=== PATIENT | male | born 1995 | race Caucasian/White ===

== ENCOUNTER 2016-11-26 23:19 | Emergency (ER) | payer OTHER ==
[2016-11-26] MEDS ORDERED: MIDAZOLAM INJ 5 MG/ML VIAL (J2250) As Ordered ONE (23:37)
[2016-11-26] MEDS ORDERED: MIDAZOLAM HCL 50 MG in D5W 40 ML IV SCH (23:45)
[2016-11-26] MEDS ORDERED: MIDAZOLAM HCL 100 MG in D5W 80 ML IV SCH (23:45)
[2016-11-27] MEDS ORDERED: MIDAZOLAM HCL 50 MG in D5W 40 ML IV SCH ×2
[2016-11-27 00:03] LABS: ANION GAP 10 MEQ/L (8-16); BLOOD UREA NITROGEN 13 MG/DL (7-18); CARBON DIOXIDE LEVEL 26 MEQ/L (21-32); CHLORIDE LEVEL 108 MEQ/L (98-107); CREATININE FOR GFR 1.44 MG/DL (0.70-1.30); GLOMERULAR FILTRATION RATE > 60.0 (>60); GLUCOSE, FASTING 78 MG/DL (70-105); POTASSIUM SERUM 4.3 MEQ/L (3.5-5.1); SODIUM LEVEL 144 MEQ/L (136-145)
[2016-11-27 00:06] LABS: ADD MANUAL DIFFER YES; MEAN CORPUSCULAR HEMOGLOBIN 30.7 pg (27.0-33.0); MEAN CORPUSCULAR HGB CONC 33.9 g/dl (32.0-36.5); MEAN CORPUSCULAR VOLUME 90.5 fl (80.0-96.0); PLATELET COUNT, AUTOMATED 216 k/mm3 (150-450); RED CELL DISTRIBUTION WIDTH 12.8 % (11.5-14.5); WHITE BLOOD COUNT 15.3 K/mm3 (4.0-10.0)
[2016-11-27] MEDS ORDERED: LIDOCAINE 1% MDV 20ML VIAL As Ordered ONE (00:37)
--- NOTE | 2016-11-27 00:40 | REPUSA ---
CLINICAL HISTORY: Head trauma. TECHNIQUE: Multiple axial brain CT scan sections were obtained from base to vertex without contrast a dministration. COMMENTS: Anterior facial soft tissue edema. Acute displaced fractures of the nasal bones. The study shows normal configuration of sella turcica. There are no intra or extra-axial collections. There is no mass effect or midline shift. There is no evidence of hematoma formation. No hydrocephal us is present. No abnormal calcifications are noted. No significant abnormalities are seen either in the posterior fossa or supratentorial compartment. The sinuses and mastoid air cells are patent. IMPRESSION: Acute displaced fractures of the nasal bones. Anterior facial soft tissue edema. No evidence of acute intracranial pathology. No intracranial hemorrhage. Thank you for your kind referral of this patient.
[2016-11-27 00:41] LABS: BANDS 5 % (< 11)
[2016-11-27 00:44] LABS: ABG HCO3 20.4 MEQ/L (22.0-26.0); ABG PARTIAL PRESSURE CO2 39.3 mmHg (35.0-45.0); ABG STANDARD HCO3 20.4 MEQ/L (22.0-26.0); ABG TOTAL CO2 21.6 MEQ/L (22.0-29.0); ABG pH (ARTERIAL) 7.333 UNITS (7.350-7.450)
[2016-11-27] MEDS ORDERED: LIDOCAINE 1% SDV 5 ML VIAL SC ONE (00:45)
--- NOTE | 2016-11-27 00:50 | REPUSA ---
HISTORY: Trauma. COMPARISON: Not provided. TECHNIQUE: Multiple thin section helically-acquired axially-displayed and helically acquired coronall y displayed computed tomographic images of the face are obtained from the mandible through the fronta l sinuses, with images obtained at soft tissue and bone window. 2D reformatted images were performed. FINDINGS: Acute displaced fractures of the nasal bones. Acute displaced fracture of the nasal spine of the maxillary bone. Soft tissue edema and swelling. Normal orbits. Normal, clear paranasal sinuses. Normal oral and nasal cavities. Normal infratemporal fossa and deep parapharyngeal spaces with normal muscles of mastication. Normal parotid and submandibular glands. IMPRESSION: Acute displaced fractures of the facial bones with soft tissue edema as described above. Thank you for your kind referral of this patient
--- NOTE | 2016-11-27 00:50 | REPUSA ---
CLINICAL HISTORY: Neck pain. TECHNIQUE: Multiple axial images were obtained through the cervical spine. Images were also reconstru cted in coronal and sagittal planes. The study was performed without IV contrast. COMMENTS: There is no fracture or spondylolisthesis visualized. The paraspinal soft tissues are unremarkable. T here are no lytic or blastic lesions. Straightening of cervical lordosis is seen, suggesting muscular spasm. There is evidence of minimal m ultilevel disk disease, demonstrated by minimal osteophytosis and endplate sclerosis. No significant disk herniation is noted at any level. Canal and foramina remain patent. IMPRESSION: 1. No fracture or spondylolisthesis. 2. Straightening of cervical lordosis is seen, suggesting muscular spasm. 3. Minimal multilevel spondylosis. Thank you for your kind referral of this patient.
[2016-11-27 00:53] LABS: INR 1.07
[2016-11-27] MEDS ORDERED: DERMABOND TOPICAL SKIN ADHESIVE TOP ONE (01:00)
[2016-11-27] MEDS ORDERED: MIDAZOLAM INJ 2 MG/2 ML VIAL (J2250) IV ONE (01:15)
[2016-11-27] MEDS ORDERED: ETOMIDATE INJ 20MG/10ML VIAL IV ONE (01:15)
[2016-11-27] MEDS ORDERED: SUCCINYLCHOLINE INJ 200 MG/10 ML VIAL (J0330) IV ONE (01:15)
[2016-11-27] MEDS ORDERED: NS 1,000 ML IV ONE (01:30)
[2016-11-27 03:00] VITALS: BP 113/56
[2016-11-27] MEDS ORDERED: REFRIGERATOR IV KEYS XX PRN (03:15)
[2016-11-27] MEDS ORDERED: MIDAZOLAM HCL 100 MG in D5W 80 ML IV SCH (03:30)
--- NOTE | 2016-11-27 07:27 | REP ---
Clinical: Endotracheal tube placement. Comparison: None. Findings: Endotracheal tube in satisfactory position approximately 3.1 cm above the kristian. Lung volumes are symmetric and without obvious consolidation, effusion, or pneumothorax. Mediastinum and cardiac silhouette are within normal limits. Skeletal structures are intact. Impression: Endotracheal tube in satisfactory position. No obvious acute cardiopulmonary process. Signed by Huang Hull MD 11/27/2016 07:19 A
[2017-01-23] MEDS ORDERED: MELA3TAB49 PO (11:14)
== END 2016-11-27 03:26 | disposition short-term general hospital (02) ==
LOC: M ED 23:24
DX: S09.90XA Unspecified injury of head, initial encounter (principal); S02.2XXA Fracture of nasal bones, initial encounter for closed fracture; S01.511A Laceration without foreign body of lip, initial encounter; S03.2XXA Dislocation of tooth, initial encounter; Y04.0XXA Assault by unarmed brawl or fight, initial encounter; Y92.019 Unspecified place in single-family (private) house as the place of occurrence of the external cause; Y93.89 Activity, other specified; Y99.8 Other external cause status
CPT/HCPCS: 12011; 36600; 51702; 70450; 70486; 71010; 72125; 80048; 82550; 82803; 85025; 85610; 85730; 96374; 96375; 96376; 99291; G0480; J0330; J2250

== ENCOUNTER 2018-09-28 23:10 | Inpatient (IN) | payer OTHER ==
[~2018-09-28] VITALS: Ht 170.2 cm; Wt 61.4 kg
[~2018-09-28 23:10] MED LIST: MELA3TAB49 PO
[2018-09-29 00:36] LABS: HEMATOCRIT 46.2 % (42.0-52.0); HEMOGLOBIN 15.8 g/dl (13.5-17.5); MEAN CORPUSCULAR HEMOGLOBIN 30.4 pg (27.0-33.0); MEAN CORPUSCULAR HGB CONC 34.2 g/dl (32.0-36.5); PLATELET COUNT, AUTOMATED 255 10^3/uL (150-450); RED BLOOD COUNT 5.19 10^6/uL (4.30-6.10); WHITE BLOOD COUNT 7.3 10^3/uL (4.0-10.0)
[2018-09-29 01:04] LABS: AMPHETAMINES LEVEL URINE NEGATIVE (NEGATIVE); BARBITURATES URINE NEGATIVE (NEGATIVE); BENZODIAZEPINES URINE NEGATIVE (NEGATIVE); CANNABINOIDS URINE NEGATIVE (NEGATIVE); COCAINE METABOLITE URINE NEGATIVE (NEGATIVE); METHADONE URINE NEGATIVE (NEGATIVE); OPIATES URINE NEGATIVE (NEGATIVE); PHENCYCLIDINE URINE NEGATIVE (NEGATIVE)
[2018-09-29 01:07] LABS: ACETAMINOPHEN LEVEL < 2.0 UG/ML (10.0-30.0); ALBUMIN 4.8 GM/DL (3.2-5.2); ALT/SGPT 26 U/L (12-78); BILIRUBIN,DIRECT 0.1 MG/DL (0.0-0.2); BILIRUBIN,TOTAL 0.2 MG/DL (0.2-1.0); BLOOD UREA NITROGEN 10 MG/DL (7-18); CALCIUM LEVEL 8.5 MG/DL (8.5-10.1); CARBON DIOXIDE LEVEL 30 MEQ/L (21-32); CHLORIDE LEVEL 101 MEQ/L (98-107); CREATININE FOR GFR 1.29 MG/DL (0.70-1.30); ETHYL ALCOHOL (ETHANOL) 0.154 % (0.000-0.010); GLOMERULAR FILTRATION RATE > 60.0 (>60); GLUCOSE, FASTING 106 MG/DL (70-100); POTASSIUM SERUM 3.7 MEQ/L (3.5-5.1); SALICYLATE LEVEL < 1.7 MG/DL (5.0-30.0); SODIUM LEVEL 141 MEQ/L (136-145); TOTAL PROTEIN 8.6 GM/DL (6.4-8.2)
[2018-09-29] MEDS ORDERED: ACETAMINOPHEN TAB 650MG DOSE (2X325MG) PO PRN (03:15)
[2018-09-29] MEDS ORDERED: NICOTINE 21MG/24HR 1 EA TRANSDERMAL TD PRN (03:15)
[2018-09-29] MEDS ORDERED: MAALOX 30 ML SUSP *UDC PO PRN (03:15)
[2018-09-29] MEDS ORDERED: MOM 30ML SUSPENSION UDC PO PRN (03:15)
[2018-09-29 04:48] VITALS: BP 135/82
[2018-09-29] MEDS: NICOTINE POLACRILEX 2 MG GUM PO PRN ×3 (09:45→20:54)
[2018-09-29 10:14] LABS: HEMOGLOBIN A1c 5.9 %
[2018-09-29 10:25] LABS: CHOLESTEROL RISK RATIO 2.419 (<5); FREE THYROXINE INDEX 3.2 % (1.4-3.8); THYROID STIMULATING HORMONE 3.38 uIU/ML (0.358-3.740)
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
[2018-09-29] MEDS ORDERED: SERTRALINE HCL 25 MG TABLET PO ONE (10:45)
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
[2018-09-29 18:00] VITALS: BP 122/82
[2018-09-29] MEDS: traZODone 50 MG TAB PO PRN (20:54)
[2018-09-29] MEDS: hydrOXYzine 10 MG TAB PO PRN (20:54)
[2018-09-30 06:55] VITALS: BP 125/71
[2018-09-30] MEDS ORDERED: SERTRALINE HCL 25 MG TABLET PO SCH (09:00)
[2018-09-30] MEDS: NICOTINE POLACRILEX 2 MG GUM PO PRN ×4 (09:13→22:13)
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
[2018-09-30] MEDS: hydrOXYzine 10 MG TAB PO PRN (15:41)
[2018-09-30 18:22] VITALS: BP 130/84
--- NOTE | 2018-09-30 19:27 | MHIPNPDOC ---
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 Patient reported symptoms consistent for quite some time, but no recent treatment prior to his admission. Interval History The patient met with today where he describes that he is feeling only very mildly better on the sertraline at this time. The patient describes that the talk therapy and the therapeutic milieu have been quite helpful for abating his suicidal ideation to the point where he no longer endorses it as he felt he has had some time to explore the situations that had brought him to it. Explore the patient's history as well as his hopes for the future and potential goals. The patient has done well on the unit attending only several groups as he notes that he feels somewhat awkward around other patients who are sicker than him. He has had no behavioral units on the ER and has been very cooperative. Review Of Systems Depression: The patient endorses continued fatigue, loss of interest, insomnia and low mood with no suicidal ideation at this time Anxiety: The patient endorses no significant nonsituational anxiety at this time Liza: The patient has no signs of liza on the unit Psychotic: The patient has no signs or symptoms of psychosis on the unit. Medical Cardiovascular: Denies chest pain or palpitations GI: Denies Nausea, vomiting, or bowel changes Respiratory: Denies shortness of breath or cough Neuro: Denies dizziness, tremors Derm: Denies any rashes or pruritus Heme/Lymph: denies any bruising or bleeding Vital Signs Reviewed. Mental Status Examination General: Well dressed with good hygiene Speech: Spontaneous and fluid Thought processes: Linear and logical MSK: Smooth and coordinated gait, no signs of tremors or involuntary orofacial movements Thought content: Future orientated Abstract reasoning, and computation: Intact Description of associations: Intact Description of abnormal or psychotic thoughts: Denies any suicidal or homicidal ideation. Denies any auditory or visual hallucinations. Does not appear to be responding to internal stimuli. Does not appear to be endorsing any bizarre or paranoid ideation. Judgment: Improving Insight: Improving Orientation: Alert and orientated 3 Cognition: Grossly normal Recent and remote memory: Intact Attention span and concentration: Intact Fund of knowledge: Adequate Mood: "okay" Affect: Dysthymic with a constricted range Diagnoses Major depressive disorder, severe, recurrent without psychotic symptoms: unstable Tobacco use disorder, moderate, : stable in controlled setting. Suicidal thoughts: improving Assessment and Plan The patient a 24 year old man with a history of depression presents with suicidal thoughts and a plan to shoot himself. Will discontinue sertraline at this time as it appears ineffective. Will start Wellbutrin 150 mg daily. Discussed the risks, benefits and potential side effects of Wellbutrin including common known side effects and explore the alternative options to current treatment. Disposition The patient will need further inpatient admission to address his severe d epression symptoms in order to secure a safe discharge. Time Spent 40 minutes of face to face time with greater than 50% counseling/coordination of care. Vital Signs Vital Signs Date Time Temp Pulse Resp B/P (MAP) Pulse Ox O2 Delivery O2 Flow Rate FiO2 09/30/18 18:22 98.4 70 16 130/84 (99) 09/29/18 04:48 97 09/29/18 03:44 Room Air Current Medications Current Medications Acetaminophen (Tylenol Tab) 650 mg Q6HP PRN PO HEADACHE or DISCOMFORT; Start 09/29/18 at 03:15 Al Hydrox/Mg Hydrox/Simethicone (Mylanta) 30 ml Q4HP PRN PO HEARTBURN/INDIGESTION; Start 09/29/18 at 03:15 Bupropion HCl (Wellbutrin Xl) 150 mg DAILY PO ; Start 10/01/18 at 09:00 Home Med (Med Rec Complete!) ASDIRECTED XX ; Start 09/29/18 at 04:00; Stop 09/29/18 at 04:00; Status DC Hydroxyzine HCl (Atarax) 10 mg Q6HP PRN PO ANXIETY/AGITATION Last administered on 09/30/18at 15:41; Start 09/29/18 at 10:45 Magnesium Hydroxide (Milk Of Magnesia) 30 ml DAILYPRN PRN PO CONSTIPATION; Start 09/29/18 at 03:15 Nicotine (Nicoderm Cq 21mg) 1 patch DAILY PRN TD CRAVING; Start 09/29/18 at 03:15; Stop 09/29/18 at 09:32; Status DC Nicotine (Nicorette) 2 mg Q2HP PRN PO NICOTINE WITHDRAWAL Last administered on 09/30/18at 15:41; Start 09/29/18 at 09:30 Sertraline HCl (Zoloft) 25 mg DAILY PO Last administered on 09/30/18at 09:13; Start 09/30/18 at 09:00; Stop 09/30/18 at 16:19; Status DC Trazodone HCl (Desyrel) 50 mg QHSP PRN PO INSOMNIA Last administered on 09/29/18at 20:54; Start 09/29/18 at 03:15 Allergies Coded Allergies: No Known Allergies (Unverified , 01/23/17) ALOK COTA DO Sep 30, 2018 19:27
[2018-09-30] MEDS: traZODone 50 MG TAB PO PRN (22:13)
[2018-10-01 06:36] VITALS: BP 102/55
[2018-10-01] MEDS: NICOTINE POLACRILEX 2 MG GUM PO PRN ×4 (08:30→17:07)
[2018-10-01] MEDS ORDERED: buPROPion **XL** TABLET 150MG (WELLBUTRIN XL) PO SCH (09:00)
[2018-10-01 18:00] VITALS: BP 122/78
[2018-10-02 06:00] VITALS: BP 112/64
--- NOTE | 2018-10-02 08:00 | MHDSPDOC ---
[facility] Discharge Summary Discharge Summary DATE OF ADMISSION: Sep 29, 2018 at 03:05 DATE OF DISCHARGE:10/02/18 Diagnoses MDD, moderate, in full remission, recurrent. 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 Patient reported symptoms consistent for quite sometime, but no recent treatment prior to his admission. Consultants Involved None. Treatment and Progress On The Unit Patient was admitted to the in-patient unit with fairly intense depressive symptoms. He had great insight still preserved suggesting he was still in the moderate zone for major depression. He was initially started on sertraline 25 mg that appeared ineffective. However, after switching to Wellbutrin and engaging in more intensive psychotherapy, his condition improved quite quickly. He was titrated up to 300 mg of Wellbutrin, that was even more effective for his sy mptoms and subsequently improved his triage for discharge. Patient reported that he was feeling much improved and that his symptoms had gone into remission. He demonstrated no safety issues for at least 24 hours prior to discharge. 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 His repeated episodes likely put him on a recurrent episode of #3 or 4. Discussed in-depth the risks, benefits of treatment of depression as well as future treatment. He appeared very amenable and insightful during the entirety of his stay. Mental Status Examination General: Well dressed with good hygiene Speech: Spontaneous and fluid Thought processes: Linear and logical MSK: Smooth and coordinated gait, no signs of tremors or involuntary orofacial movements Thought content: Future orientated Abstract reasoning, and computation: Intact Description of associations: Intact Description of abnormal or psychotic thoughts: Denies any suicidal or homicidal ideation. Denies any auditory or visual hallucinations. Does not appear to be responding to internal stimuli. Does not appear to be endorsing any bizarre or paranoid ideation. Judgment: fair Insight: fair Orientation: Alert and orientated 3 Cognition: Grossly normal Recent and remote memory: Intact Attention span and concentration: Intact Fund of knowledge: Adequate Mood: "okay" Affect: Euthymic with a full range Follow Up The social work team worked during the pre-discharge meeting in order to evaluate for further issues of lethality address them fully before discharge. They worked on safety planning with the patient's family members in order to ensure that the patient will have a safe and effective discharge. The amount of time spent in the coordination of care for this patient was approximately 30 minutes. Patient was discharged on 300 mg of Wellbutrin extended release daily. In- command meeting successfully completed in order to facilitate effective return to outpatient behavioral health. No safety issues elucidated prior to discharge. Patient in full agreement for safety planning. Vital Signs/I&Os Vital Signs Date Time Temp Pulse Resp B/P (MAP) Pulse Ox O2 Delivery O2 Flow Rate FiO2 10/02/18 06:00 97.8 56 12 112/64 (80) 09/29/18 04:48 97 09/29/18 03:44 Room Air Medications Scheduled Bupropion HCl (Wellbutrin Xl) 150 Mg Tab.er.24h, 300 MG PO DAILY for mood for 7 Days, #14 Allergies Coded Allergies: No Known Allergies (Unverified , 01/23/17) ALOK COTA DO Oct 02, 2018 08:00
[2018-10-02] MEDS: NICOTINE POLACRILEX 2 MG GUM PO PRN (08:20)
[2018-10-02] MEDS ORDERED: buPROPion **XL** TABLET 150MG (WELLBUTRIN XL) PO SCH (09:00)
--- NOTE | 2018-10-02 09:44 | MHIPNPDOC ---
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 Patient reported symptoms consistent for quite some time, but no recent treatment prior to his admission. Interval History The patient is met with today. He describes the Wellbutrin as fairly helpful for soothing his depression and that he's become much more active and engaged with others. He was found playing cards with others in the break room, attending groups regularly, exhibiting much social and interactive affect. He feels confident about returning home soon. He reports no side effects with the Wellbutrin. Review Of Systems Patient denies any palpitations, chest pain, agitation, anxiety, tremors or o ther side effects related to the Wellbutrin. Psychotherapy Psychoeducation related to depression as well as depression treatment focusing on patient's strengths, 16 minutes of psychotherapy completed in a supportive manner with beneficial result. Vital Signs Reviewed. Mental Status Examination General: Well dressed with good hygiene Speech: Spontaneous and fluid Thought processes: Linear and logical MSK: Smooth and coordinated gait, no signs of tremors or involuntary orofacial movements Thought content: Future orientated Abstract reasoning, and computation: Intact Description of associations: Intact Description of abnormal or psychotic thoughts: Denies any suicidal or homicidal ideation. Denies any auditory or visual hallucinations. Does not appear to be responding to internal stimuli. Does not appear to be endorsing any bizarre or paranoid ideation. Judgment: fair Insight: fair Orientation: Alert and orientated 3 Cognition: Grossly normal Recent and remote memory: Intact Attention span and concentration: Intact Fund of knowledge: Adequate Mood: "okay" Affect: Euthymic with a full range Diagnoses Major depressive disorder, severe, recurrent without psychotic symptoms: Improving. Tobacco use disorder, moderate, stable in controlled setting. Assessment and Plan The patient a 24 year old man with a history of depression presents with suicidal thoughts and a plan to shoot himself. Will discontinue sertraline at this time as it appears ineffective. We'll increase Wellbutrin to 300 mg daily. The patient will likely be discharged tomorrow pending improvement of his condition as his suicidal ideation has resolved and his depression has been fairly well treated. Chain of command meeting will commence tomorrow. Disposition The patient will need a further inpatient admission stay overnight in order to ensure a smooth transition with chain of command meeting and disposition planning at this time. Time Spent 30 minutes total [id number] time, 16 minutes psychotherapy time. Vital Signs Vital Signs Date Time Temp Pulse Resp B/P (MAP) Pulse Ox O2 Delivery O2 Flow Rate FiO2 10/02/18 06:00 97.8 56 12 112/64 (80) 09/29/18 04:48 97 09/29/18 03:44 Room Air Current Medications Current Medications Acetaminophen (Tylenol Tab) 650 mg Q6HP PRN PO HEADACHE or DISCOMFORT; Start 09/29/18 at 03:15 Al Hydrox/Mg Hydrox/Simethicone (Mylanta) 30 ml Q4HP PRN PO HEARTBURN/INDIGESTION; Start 09/29/18 at 03:15 Bupropion HCl (Wellbutrin Xl) 150 mg DAILY PO Last administered on 10/01/18at 08:30; Start 10/01/18 at 09:00; Stop 10/01/18 at 12:27; Status DC Bupropion HCl (Wellbutrin Xl) 300 mg DAILY PO Last administered on 10/02/18at 08:19; Start 10/02/18 at 09:00 Home Med (Med Rec Complete!) ASDIRECTED XX ; Start 09/29/18 at 04:00; Stop 09/29/18 at 04:00; Status DC Hydroxyzine HCl (Atarax) 10 mg Q6HP PRN PO ANXIETY/AGITATION Last administered on 09/30/18at 15:41; Start 09/29/18 at 10:45 Magnesium Hydroxide (Milk Of Magnesia) 30 ml DAILYPRN PRN PO CONSTIPATION; Start 09/29/18 at 03:15 Nicotine (Nicoderm Cq 21mg) 1 patch DAILY PRN TD CRAVING; Start 09/29/18 at 03:15; Stop 09/29/18 at 09:32; Status DC Nicotine (Nicorette) 2 mg Q2HP PRN PO NICOTINE WITHDRAWAL Last administered on 10/02/18at 08:20; Start 09/29/18 at 09:30 Sertraline HCl (Zoloft) 25 mg DAILY PO Last administered on 09/30/18at 09:13; Start 09/30/18 at 09:00; Stop 09/30/18 at 16:19; Status DC Trazodone HCl (Desyrel) 50 mg QHSP PRN PO INSOMNIA Last administered on 09/30/18at 22:13; Start 09/29/18 at 03:15 Allergies Coded Allergies: No Known Allergies (Unverified , 01/23/17) ALOK COTA DO Oct 02, 2018 09:44
[2018-10-02] MEDS ORDERED: BUPR150T3 PO (10:09)
[2018-10-02] MEDS ORDERED: WELLTAB38 PO (11:16)
== END 2018-10-02 10:45 | disposition home or self-care (01) | DRG 885 ==
LOC: M ED 23:10 → M ED INP 09-29 03:05 → M PSY 09-29 03:53
PROVIDERS: ADMIT Psychiatry & Neurology Psychiatry; ATTEND Psychiatry & Neurology Addiction Medicine
DX: F33.1 Major depressive disorder, recurrent, moderate (principal); F10.14 Alcohol abuse with alcohol-induced mood disorder; F17.210 Nicotine dependence, cigarettes, uncomplicated; Z81.3 Family history of other psychoactive substance abuse and dependence; Z81.8 Family history of other mental and behavioral disorders

== ENCOUNTER 2021-03-18 02:23 | Emergency (ER) | payer OTHER ==
[~2021-03-18] VITALS: Ht 167.6 cm; Wt 60.0 kg
[~2021-03-18 02:23] MED LIST changes: +BUPR150T12 PO; +WELLTAB38 PO
[2021-03-18] MEDS ORDERED: NS 1,000 ML IV ONE (06:30)
[2021-03-18 07:07] LABS: BASO % 0.3 % (0.0-1.0); EOS % 0.3 % (0.0-3.0); HEMATOCRIT 38.2 % (42.0-52.0); HEMOGLOBIN 13.2 g/dl (13.5-17.5); LYMPH # 1.6 10^3/uL (1.5-5.0); LYMPH % 17.1 % (24.0-44.0); MEAN CORPUSCULAR HEMOGLOBIN 31.3 pg (27.0-33.0); MEAN CORPUSCULAR HGB CONC 34.6 g/dl (32.0-36.5); MEAN CORPUSCULAR VOLUME 90.5 fl (80.0-96.0); MONO # 0.9 10^3/uL (0.0-0.8); MONO % 9.5 % (2.0-8.0); NEUTROPHILS # 6.7 10^3/uL (1.5-8.5); NEUTROPHILS % 72.4 % (36.0-66.0); PLATELET COUNT, AUTOMATED 212 10^3/uL (150-450); RED BLOOD COUNT 4.22 10^6/uL (4.30-6.10); WHITE BLOOD COUNT 9.2 10^3/uL (4.0-10.0)
[2021-03-18 07:33] LABS: BLOOD UREA NITROGEN 11 MG/DL (7-18); CALCIUM LEVEL 9.3 MG/DL (8.5-10.1); CARBON DIOXIDE LEVEL 26 MEQ/L (21-32); CHLORIDE LEVEL 105 MEQ/L (98-107); CREATININE FOR GFR 1.13 MG/DL (0.70-1.30); GLOMERULAR FILTRATION RATE > 60.0 (>60); GLUCOSE, FASTING 97 MG/DL (70-100); SODIUM LEVEL 142 MEQ/L (136-145)
[2021-03-18 07:51] LABS: RSV AMPLIFICATION NEGATIVE (NEGATIVE)
[2021-03-18 08:00] VITALS: BP 105/60
[2021-03-18] MEDS ORDERED: MORPHINE 2 MG/ML 1ML VIAL (J2270) As Ordered ONE (08:17)
[2021-03-18] MEDS ORDERED: ONDANSETRON 4MG/2ML VIAL As Ordered ONE (08:17)
[2021-03-18] MEDS ORDERED: MORPHINE 2 MG/ML 1ML VIAL (J2270) IV ONE (08:25)
[2021-03-18] MEDS ORDERED: ONDANSETRON 4MG/2ML VIAL IV ONE (08:25)
== END 2021-03-18 08:23 | disposition short-term general hospital (02) ==
LOC: M ED 02:23
DX: S09.90XA Unspecified injury of head, initial encounter (principal); S02.32XA Fracture of orbital floor, left side, initial encounter for closed fracture; S02.2XXA Fracture of nasal bones, initial encounter for closed fracture; Y04.8XXA Assault by other bodily force, initial encounter; Y92.133 Barracks on military base as the place of occurrence of the external cause; Y93.89 Activity, other specified; Y99.8 Other external cause status; F17.290 Nicotine dependence, other tobacco product, uncomplicated; Z87.81 Personal history of (healed) traumatic fracture; Z88.0 Allergy status to penicillin
CPT/HCPCS: 70450; 70486; 72125; 80048; 85025; 86850; 86900; 86901; 87631; 96374; 96375; 99284; J2270; J2405

== ENCOUNTER → 2021-09-19 | Outpatient (CLI) | payer OTHER ==
[~2021-09-19] MED LIST changes: +ISOVUE-300 61% 50ML VIAL As Ordered ONE; +LIDOCAINE 1% MDV 20ML VIAL As Ordered ONE; +PROHANCE 279.3MG/ML 5ML VIAL As Ordered ONE
== END ==
LOC: M RADPRO 06:08
DX: S46.812S Strain of other muscles, fascia and tendons at shoulder and upper arm level, left arm, sequela (principal); R93.7 Abnormal findings on diagnostic imaging of other parts of musculoskeletal system
CPT/HCPCS: 23350; 73223; 77002; A9576; Q9967

== ENCOUNTER 2021-10-29 10:12 | Emergency (ER) | payer OTHER ==
[~2021-10-29] VITALS: Ht 167.6 cm; Wt 59.1 kg
[~2021-10-29 10:12] MED LIST changes: -ISOVUE-300 61% 50ML VIAL As Ordered ONE; -LIDOCAINE 1% MDV 20ML VIAL As Ordered ONE; -PROHANCE 279.3MG/ML 5ML VIAL As Ordered ONE
[2021-10-29] MEDS ORDERED: ASPI81CH33 PO (10:22)
[2021-10-29] MEDS ORDERED: DOCU100C16 (10:22)
[2021-10-29] MEDS ORDERED: IBUP-1022 PO (10:22)
[2021-10-29] MEDS ORDERED: NAPR220C23 PO (10:22)
[2021-10-29] MEDS ORDERED: ACET1TAB55 (10:22)
[2021-10-29] MEDS ORDERED: OXYC-517 (10:22)
[2021-10-29] MEDS ORDERED: CELE1CAP9 (10:22)
[2021-10-29] MEDS ORDERED: ECOT81TA5 PO (10:22)
[2021-10-29] MEDS ORDERED: ONDA-83 (10:22)
[2021-10-29] MEDS ORDERED: GABA-282 (10:22)
[2021-10-29] MEDS ORDERED: CelecoXIB (CeleBREX) 100 MG CAP PO ONE (11:20)
[2021-10-29] MEDS ORDERED: oxyCODONE 5MG TAB PO ONE (11:20)
[2021-10-29] MEDS ORDERED: ONDANSETRON 4MG ORAL DISINTEGRATING TAB PO ONE (11:20)
[2021-10-29] MEDS ORDERED: GABAPENTIN 300 MG CAP PO ONE (11:20)
[2021-10-29] MEDS ORDERED: CELE1CAP4 PO ×2 (11:42→13:30)
[2021-10-29] MEDS ORDERED: ONDA4TAB6 PO ×2 (11:42→13:31)
[2021-10-29 12:21] VITALS: BP 130/88
[2021-10-29] MEDS ORDERED: GABA-282 PO (13:32)
== END 2021-10-29 12:22 | disposition home or self-care (01) ==
LOC: M ED 10:12
DX: Z76.0 Encounter for issue of repeat prescription (principal); Z98.890 Other specified postprocedural states; G89.18 Other acute postprocedural pain; Z79.899 Other long term (current) drug therapy; Z79.1 Long term (current) use of non-steroidal anti-inflammatories (NSAID); Z79.891 Long term (current) use of opiate analgesic; Z79.82 Long term (current) use of aspirin; Z88.0 Allergy status to penicillin

== ENCOUNTER → 2021-11-23 | Outpatient (REF) | payer OTHER ==
[~2021-11-23] MED LIST changes: +ACET1TAB55; +ASPI81CH33 PO; +CELE1CAP4 PO; +CELE1CAP9; +DOCU100C16; +ECOT81TA5 PO; +GABA-282; +GABA-282 PO; +IBUP-1022 PO; +NAPR220C23 PO; +ONDA-83; +ONDA4TAB6 PO; +OXYC-517
[2021-11-23 14:23] LABS: SEMEN APPEARANCE OPAQUE (OPAQUE); SEMEN VISCOSITY LIQUID (LIQUID)
[2021-11-23 14:24] LABS: SPERM CONCENTRATION 8.2 M/ml (>=15.0); WBC CONCENTRATION <=1 M/ml (<=1 M/ml)
== END ==
LOC: M LAB REF 13:59
PROVIDERS: ATTEND Obstetrics & Gynecology
DX: Z01.89 Encounter for other specified special examinations (principal)

== ENCOUNTER → 2022-06-13 | Outpatient (CLI) | payer OTHER ==
[2022-06-13 14:43] LABS: BASO % 0.7 % (0.0-1.0); EOS # 0.1 10^3/uL (0.0-0.5); EOS % 1.9 % (0.0-3.0); HEMATOCRIT 45.1 % (42.0-52.0); HEMOGLOBIN 13.4 g/dl (13.5-17.5); LYMPH # 1.9 10^3/uL (1.5-5.0); LYMPH % 33.7 % (24.0-44.0); MEAN CORPUSCULAR HEMOGLOBIN 26.4 pg (27.0-33.0); MEAN CORPUSCULAR HGB CONC 29.7 g/dl (32.0-36.5); MEAN CORPUSCULAR VOLUME 88.8 fl (80.0-96.0); MONO # 0.7 10^3/uL (0.0-0.8); MONO % 11.7 % (2.0-8.0); NEUTROPHILS % 51.7 % (36.0-66.0); PLATELET COUNT, AUTOMATED 303 10^3/uL (150-450); RED BLOOD COUNT 5.08 10^6/uL (4.30-6.10); WHITE BLOOD COUNT 5.8 10^3/uL (4.0-10.0)
[2022-06-13 14:49] LABS: ALBUMIN 4.2 G/DL (3.2-5.2); ALKALINE PHOSPHATASE 64 U/L (46-116); ALT/SGPT 40 U/L (7.0-40); AST/SGOT 25 U/L (<34); BILIRUBIN,TOTAL 0.2 MG/DL (0.3-1.2); BLOOD UREA NITROGEN 12 MG/DL (9-23); CALCIUM LEVEL 9.9 MG/DL (8.5-10.1); CARBON DIOXIDE LEVEL 32 MMOL/L (20-31); CHLORIDE LEVEL 105 MMOL/L (98-107); CREATININE FOR GFR 0.76 MG/DL (0.70-1.30); GLOMERULAR FILTRATION RATE > 60.0 (>60); GLUCOSE, FASTING 118 MG/DL (60-100); POTASSIUM SERUM 5.3 MMOL/L (3.5-5.1); SODIUM LEVEL 143 MMOL/L (136-145); TOTAL PROTEIN 7.6 G/DL (5.7-8.2)
== END ==
LOC: M RAD 12:51
PROVIDERS: ATTEND Physician Assistant Medical
DX: R10.0 Acute abdomen (principal)